=== PATIENT | female | born 1985 | race Caucasian/White ===

== ENCOUNTER 2016-12-14 06:16 | Emergency (ER) | payer SELFPAY ==
[~2016-12-14] VITALS: Ht 170.2 cm; Wt 63.5 kg
[2016-12-14] MEDS ORDERED: PRENATAL PLUS I1 TAB PO (06:53)
== END 2016-12-14 08:20 | disposition short-term general hospital (02) ==
LOC: ER 06:16
DX: O20.0 Threatened abortion (principal); Z3A.01 Less than 8 weeks gestation of pregnancy; Z87.891 Personal history of nicotine dependence; Z88.8 Allergy status to other drugs, medicaments and biological substances